=== PATIENT | female | born 1970 | race Caucasian/White ===

== ENCOUNTER 2018-04-20 09:58 | Emergency (ER) | payer OTHER ==
[2018-04-20] MEDS: LIDOCAINE/MYLANTA 40 ML BTL PO (10:51)
[2018-04-20] MEDS: FAMOTIDINE 20 MG TAB PO (10:51)
== END 2018-04-20 11:16 | disposition home or self-care (01) ==
LOC: FTE 09:58
DX: R09.89 Other specified symptoms and signs involving the circulatory and respiratory systems (principal); Z87.891 Personal history of nicotine dependence
CPT/HCPCS: 99282; Z7610